=== PATIENT | female | born 1960 ===

== ENCOUNTER 2025-03-15 13:15 | Day surgery (SDC) | payer MEDICARE ==
[~2025-03-15] VITALS: Ht 154.9 cm; Wt 90.4 kg
[~2025-03-15 13:15] MED LIST: Glycopyrrolate 0.2 MG/ML 1MLVIAL ONE; Ondansetron HCl 2 MG / ML 2ML Vial ONE; ePHEDrine Sulfate 50 MG/ML 1ML Injection ONE
[2025-03-15] MEDS ORDERED: PARO20 PO (13:28)
[2025-03-15] MEDS ORDERED: CODACE30 (13:28)
[2025-03-15] MEDS ORDERED: ZOLP10 (13:29)
[2025-03-15] MEDS ORDERED: FAMO20 (13:30)
[2025-03-15] MEDS ORDERED: ACYC400 (13:30)
[2025-03-15 15:16] VITALS: BP 113/64
== END 2025-03-15 15:16 | disposition home or self-care (01) ==
LOC: ORSCSDS 13:15
PROVIDERS: Internal Medicine Gastroenterology
PROC: 0DJD8ZZ Inspection of Lower Intestinal Tract, Via Natural or Artificial Opening Endoscopic (ICD-10-PCS; principal; 2025-03-15 15:00)
PROC: 0DJ08ZZ Inspection of Upper Intestinal Tract, Via Natural or Artificial Opening Endoscopic (ICD-10-PCS; principal; 2025-03-15 15:00)
DX: R19.4 Change in bowel habit (principal); R13.10 Dysphagia, unspecified; K21.9 Gastro-esophageal reflux disease without esophagitis; R11.0 Nausea; R14.0 Abdominal distension (gaseous); G47.33 Obstructive sleep apnea (adult) (pediatric); K44.9 Diaphragmatic hernia without obstruction or gangrene; K57.30 Diverticulosis of large intestine without perforation or abscess without bleeding; E66.9 Obesity, unspecified; Z68.37 Body mass index [BMI] 37.0-37.9, adult; Z79.899 Other long term (current) drug therapy
CPT/HCPCS: J0461; J2003; J2405; J2704; J7120